=== PATIENT | female | born 1960 | race Caucasian/White ===

== ENCOUNTER → 2018-10-01 | Outpatient (CLI) | payer BC ==
[~2018-10-01] MED LIST: DIGO125T PO; LORA10TA75 PO
[2018-10-01 12:28] LABS: BASOPHILS # (AUTO) 0.03 x10^3/uL (0-0.1); BASOPHILS % (AUTO) 1 % (0-1); EOSINOPHILS # (AUTO) 0.16 x10^3/uL (0-0.4); EOSINOPHILS % (AUTO) 3 % (1-7); LYMPHOCYTES # (AUTO) 2.14 x10^3/uL (1-3.4); LYMPHOCYTES % (AUTO) 40 % (22-44); MD NO; MEAN CORPUSCULAR HEMOGLOBIN 30.2 pg (27.0-34.8); MEAN CORPUSCULAR HGB CONC 33.6 g/dL (32.4-35.8); MEAN CORPUSCULAR VOLUME 89.8 fL (80-100); MEAN PLATELET VOLUME 7.7 fL (7.4-10.4); MONOCYTES % (AUTO) 7 % (2-9); NEUTROPHILS # (AUTO) 2.67 x10^3/uL (1.8-6.8); NEUTROPHILS % (AUTO) 50 % (42-75); PLATELET COUNT 308 x10^3/uL (130-400); RED BLOOD COUNT 5.26 x10^6/uL (3.82-5.3); RED CELL DISTRIBUTION WIDTH 13.3 % (9.6-15.2)
[2018-10-01 12:38] LABS: ALANINE AMINOTRANSFERASE 26 U/L (12-78); ANION GAP 3 mmol/L (5-15); CALCIUM 9.4 mg/dL (8.5-10.1); CHLORIDE 108 mmol/L (98-107); CREATININE 0.92 mg/dL (0.55-1.02); INTERNATIONAL NORMALIZED RATIO 0.95 (0.93-1.1)
[2018-10-01 12:40] LABS: ALKALINE PHOSPHATASE 85 U/L (45-117); BILIRUBIN,TOTAL 0.6 mg/dL (0.2-1.0); TOTAL PROTEIN 7.4 g/dL (6.4-8.2)
== END | disposition home or self-care (01) ==
LOC: CFH 10:37
PROVIDERS: ATTEND Internal Medicine Cardiovascular Disease
DX: I47.1 Supraventricular tachycardia (principal); R55 Syncope and collapse
CPT/HCPCS: 36415; 71046; 80053; 85025; 85610; 85730

== ENCOUNTER 2018-10-05 06:29 | Day surgery (SDC) | payer BC ==
[~2018-10-05] VITALS: Ht 172.7 cm; Wt 86.4 kg
[2018-10-05] MEDS ORDERED: LIDOCAINE 1%, 20ML ONE (06:38)
[2018-10-05] MEDS ORDERED: SODIUM CHLORIDE 0.9% 1,000 ML IV SCH (06:45)
[2018-10-05 06:49] VITALS: BP 123/75
[2018-10-05] MEDS ORDERED: LORA10TA75 PO (06:58)
[2018-10-05] MEDS ORDERED: DIGO125T PO (06:58)
[2018-10-05] MEDS ORDERED: MIDAZOLAM 1 MG/ML, 5ML ONE (07:59)
[2018-10-05] MEDS ORDERED: FENTANYL PF 100 MCG/2ML ONE (07:59)
[2018-10-05] MEDS ORDERED: LIDOCAINE 2%, 20ML ONE (08:00)
[2018-10-05] MEDS ORDERED: HEPARIN 1,000 UNITS/ML, 10ML ONE (08:00)
[2018-10-05] MEDS ORDERED: ADENOSINE 6 MG/2 ML ONE (08:00)
[2018-10-05] MEDS ORDERED: ISOPROTERENOL 0.2MG/ML, 5ML ONE (08:00)
[2018-10-05] MEDS ORDERED: ATROPINE SYRINGE 0.1 MG/ML, 10ML ONE (08:53)
[2018-10-05 09:53] VITALS: BP 97/67
== END 2018-10-05 14:21 | disposition home or self-care (01) ==
LOC: EDBD → CACL 06:29 → 5SO 09:42 → CACL 14:21
PROVIDERS: ATTEND Internal Medicine Cardiovascular Disease
DX: I47.1 Supraventricular tachycardia (principal); Z79.899 Other long term (current) drug therapy; Z87.891 Personal history of nicotine dependence; Z82.49 Family history of ischemic heart disease and other diseases of the circulatory system
CPT/HCPCS: 93613; 93621; 93623; 93653; 99156; 99157; C1730; C1731; C1766; C1894; C2630; J0461; J2250; J3010; G0378; J0153; J1644